=== PATIENT | male | born 1990 | race Hispanic/Latino ===

== ENCOUNTER 2024-05-22 20:10 | Emergency (ER) | payer BC, SELFPAY ==
[2024-05-22 20:12] VITALS: BP 134/81
--- NOTE | 2024-05-22 21:24 | ED.GENMED ---
History of Present Illness
General
Chief Complaint: DVT/Possible Blood Clot
Source: patient
Exam Limitations: none
Time Seen by Provider: 05/22/24 20:53
Nursing documentation reviewed up to this point in time: agreed with
History of Present Illness
History of Present Illness:
Patient is a 34-year-old male presenting to the emergency department with ecchymoses and pain of left calf. Patient states today around noon he happened to notice some bruising in his left calf and feels as if his calf is tight when ambulating.
Patient denies any numbness/tingling of left lower extremity. No pain in left knee. Patient denies any shortness of breath, chest pain, or syncopal episodes.
Patient reports sustaining an ankle injury about 2 weeks ago and has been following up with orthopedics. He was instructed to return to the emergency department for DVT rule out if he noticed any bruising/pain of his calf. Patient is scheduled for
follow-up with orthopedics on for repeat xray. Patient has been instructed to weight bear as tolerated.
Patient has no personal or family history of blood clots or clotting disorders.
Review of Systems
Review of Systems
Allergies reviewed?: Yes
All Other Systems: ROS reviewed and negative except as documented in HPI and ROS
Phy Exam
Physical Exam
Physical Exam:
Vitals: Patient's vital signs are stable. Afebrile
General: Patient is well appearing, no acute distress
Skin: Warm and dry, no rashes or lesions
Head: Normocephalic, atraumatic
Throat: Protecting airway
Neck: Normal ROM, no cervical spine tenderness
Cardiac: Regular rate and rhythm.
Pulm: No apparent respiratory distress. Lungs clear bilaterally
Abdomen: Nondistended
Extremities: Mild diffuse edema of left ankle without any bony tenderness. Area of ecchymoses on left calf with minimal tenderness. No palpable cord. Negative Homans' sign of LLE. Palpable DP, PT, and popliteal pulse of LLE with normal
sensation. Capillary refill WNL.
Neuro: Grossly intact
Psychiatric: Normal affect.
Course
Orders/Labs/Results
Orders:
Orders
05/22/24 20:14
US Periph Venous LOWER Ext LT Urgent
Comment:
Reason For Exam: pain, swelling
Vital Signs
Initial and Last Documented VS:
Initial Vital Signs
Temp Pulse Resp BP Pulse Ox
98.0 F 79 18 134/81 96
05/22/24 20:12 05/22/24 20:12 05/22/24 20:12 05/22/24 20:12 05/22/24 20:12
Last Documented Vital Signs
Temp Pulse Resp BP Pulse Ox
98.0 F 79 18 134/81 96
05/22/24 20:12 05/22/24 20:12 05/22/24 20:12 05/22/24 20:12 05/22/24 20:12
MDM/Problems Addressed
Differential Diagnosis Includes:
Not limited to: DVT, muscle strain, traumatic ecchymoses, etc.
MDM/Problems Addressed:
34 year old male w/ ecchymosis and pain in left calf in setting of recent left ankle injury. No associated chest pain, SOB, fever, numbness in LLE. Vitals and exam as above. LLE with diffuse edema of left ankle w/ small area of ecchymosis on left
calf. There is very minimal tenderness and no palpable cord. Normal neurovascular exam. An US was obtained in triage which shows no evidence of DVT. Possibly associated muscle strain/ tear from previous ankle injury. Patient ambulating without
difficulty. Feel stable for discharge w/ continued ortho f/u outpatient. Return precautions discussed.
Chronic conditions affecting care:
Recent left ankle injury
Acute Exacerbation and/or Progression of Chronic Illness:
N/A
*Radiology
Radiology exam reviewed: radiology read reviewed (No evidence of DVT of left lower extremity)
*Pulse Oximetry
Patient hypoxic: no
*EKG
Interpreted by ED Provider?: NA
*Consumer Safety Officer Interpretation
Rate: Consumer Safety Officer- N/A
*Critical Care Note
Total Time (30-74mins, 75-104mins- exclusive of procedures): Not Applicable
ED Attending Note
-
Portions of this chart may have been created with voice recognition software.� Occasional wrong word or��sound alike� substitutions may have occurred due to the inherent limitations of voice recognition software.
Discharge Plan
Departure
Patient Disposition: Home (Routine Discharge)
Date of Disposition: 05/22/24
Time of Disposition: 21:28
Patient with high blood pressure during this ER visit?: Yes
Condition: Good
Covid-19: Not Applicable
Discharge Problem:
Ecchymosis of left calf, Injury of ankle, left
Instructions: BLOOD PRESSURE
Activity Restrictions/Additional Instructions:
Return to the emergency department with any worsening bruising, pain, or swelling of left lower extremity, numbness/tingling in left lower extremity, chest pain, shortness of breath, lightheadedness/fainting, or any other concerns
- As discussed�your ultrasound performed in the emergency department today showed no evidence of a blood clot.
- You should continue to ice/elevate your left possible. Take Tylenol and/or Motrin as needed for pain. Weight-bear as tolerated as instructed by orthopedic.
- It is important to follow-up with orthopedics for further evaluation/management of left ankle injury. Keep your appointment for . Given bruising and pain of left calf started today�you should closely monitor these symptoms as you may need
a repeat ultrasound in 1 week if symptoms persist/worsen.
Monitor your symptoms closely return to the emergency department with any acute worsening/new symptoms or any other concerns
Interventions
Interventions:
*Risk Screen - Suicide Last Done: 05/22/24 20:14
*General Assessment Last Done: 05/22/24 20:14
*Neglect/Abuse Screening Last Done: 05/22/24 20:14
*ED- Fall Risk Assessment Last Done: 05/22/24 20:36
*ED COVID-19 Vaccine History Last Done: 05/22/24 20:14
*Nursing Disposition Last Done: 05/22/24 21:36
ED-Peripheral Vascular Assessment Last Done: 05/22/24 21:13
ED-Skin Assessment Last Done: 05/22/24 21:13
Discharge Date and Time
Discharge Date/Time: 05/22/24 21:37
Print Language: GUYANESE
== END 2024-05-22 21:37 | disposition home or self-care (01) ==
LOC: EMR 20:10
PROVIDERS: EMERGENCY PHYSICIAN Emergency Medicine; FAMILY PHYSICIAN Family Medicine
DX: S99.912A Unspecified injury of left ankle, initial encounter (principal); S80.12XA Contusion of left lower leg, initial encounter; R60.0 Localized edema; M79.662 Pain in left lower leg; X58.XXXA Exposure to other specified factors, initial encounter; R03.0 Elevated blood-pressure reading, without diagnosis of hypertension
CPT/HCPCS: 99284; 93971